=== PATIENT | male | born 1960 | race Caucasian/White ===

== ENCOUNTER → 2016-09-16 | Outpatient (CLI) | payer OTHER | LOC: CIMAGING 15:28 | PROVIDERS: ATTEND Family Medicine | DX: R05 Cough (principal) | CPT/HCPCS: 71020-PO ==

== ENCOUNTER → 2018-10-12 | Outpatient (CLI) | payer OTHER | LOC: CIMAGING 16:21 | PROVIDERS: ATTEND Family Medicine | DX: R05 Cough (principal) | CPT/HCPCS: 71046-PO ==